=== PATIENT | male | born 1965 | race Caucasian/White ===

== ENCOUNTER → 2018-01-16 15:24 | Outpatient (CLI) | payer MEDICARE, MEDICAID, SELFPAY | PROVIDERS: PCP Family Medicine; Visit Provider Family Medicine | DX: E66.01 Morbid (severe) obesity due to excess calories (principal); I10 Essential (primary) hypertension; E11.9 Type 2 diabetes mellitus without complications; Z53.8 Procedure and treatment not carried out for other reasons; Z53.9 Procedure and treatment not carried out, unspecified reason ==

== ENCOUNTER → 2018-02-20 08:36 | Outpatient (CLI) | payer MEDICARE, MEDICAID, SELFPAY ==
[2018-02-20 10:04] LABS: BUN Creatinine Ratio 13.3 (6-22); Blood Urea Nitrogen 12 mg/dL (9-20); Calcium 9.4 mg/dL (8.4-10.2); Carbon Dioxide 34 mmol/L (22-32); Chloride 95 mmol/L (98-107); Estimated Glomerular Filt Rate > 60.0 mL/min (>60); Glucose 151 mg/dL (70-100); HEMOLYSIS < 15 (0-50); Potassium 3.4 mmol/L (3.4-5.1); Sodium 138 mmol/L (137-145)
[2018-02-20 10:45] LABS: Hemoglobin A1C% w Est Avg Glu 6.9 % (4.0-6.0)
== END ==
PROVIDERS: PCP Family Medicine; Visit Provider Family Medicine
DX: I10 Essential (primary) hypertension (principal); E11.9 Type 2 diabetes mellitus without complications
CPT/HCPCS: 36415; 80048; 83036

== ENCOUNTER → 2018-08-23 11:02 | Outpatient (CLI) | payer MEDICARE, MEDICAID, SELFPAY | PROVIDERS: PCP Family Medicine; Visit Provider Family Medicine | DX: E11.9 Type 2 diabetes mellitus without complications (principal) | CPT/HCPCS: 36415; 83036 ==

== ENCOUNTER → 2020-01-31 10:15 | Outpatient (CLI) | payer MEDICARE, MEDICAID, SELFPAY ==
[2020-01-31 11:39] LABS: Hemoglobin A1C% w Est Avg Glu 7.8 % (4.0-6.0)
[2020-01-31 11:49] LABS: Alanine Aminotransferase 50 IU/L (<50); Albumin 4.6 g/dL (3.5-5.0); Albumin Globulin Ratio 1.6 (1.0-2.8); Alkaline Phosphatase 102 U/L (38-126); Aspartate Aminotransferase 40 IU/L (17-59); BUN Creatinine Ratio 16.9 (6-22); Bilirubin Total 1.4 mg/dL (0.2-1.3); Blood Urea Nitrogen 12 mg/dL (9-20); Calcium 9.8 mg/dL (8.4-10.2); Carbon Dioxide 32 mmol/L (22-32); Chloride 97 mmol/L (98-107); Cholesterol 101 mg/dL (140-199); Estimated Glomerular Filt Rate > 60.0 mL/min (>60); Globulin 2.8 g/dL (1.7-4.1); Glucose 139 mg/dL (70-100); HDL Cholesterol 23 mg/dL (40-60); HEMOLYSIS < 15 (0-50); LDL Cholesterol Calculated 28 mg/dL (<100); Sodium 138 mmol/L (137-145); Total Protein 7.4 g/dL (6.3-8.2); Triglycerides 250 mg/dL (35-150)
[2020-01-31 17:16] LABS: Creatinine Urine Random 301.4 mg/dL
[2020-01-31 17:21] LABS: Microalbumi Creatinin Ratio Ur 30.5 ug/mg CR (<30); Microalbumin Urine Random 9.2 mg/dL (0-1.6)
== END ==
PROVIDERS: PCP Family Medicine; Referring Provider Family Medicine; Visit Provider Family Medicine
DX: E11.9 Type 2 diabetes mellitus without complications (principal); E66.01 Morbid (severe) obesity due to excess calories; E78.5 Hyperlipidemia, unspecified; I10 Essential (primary) hypertension; R17 Unspecified jaundice
CPT/HCPCS: 36415; 80053; 80061; 82043; 82570; 83036

== ENCOUNTER → 2020-05-09 11:39 | Outpatient (CLI) | payer MEDICARE, MEDICAID, SELFPAY ==
[2020-05-09 12:32] LABS: Hemoglobin A1C% w Est Avg Glu 7.3 % (4.0-6.0)
[2020-05-09 14:04] LABS: Alanine Aminotransferase 37 IU/L (<50); Albumin 4.3 g/dL (3.5-5.0); Albumin Globulin Ratio 1.4 (1.0-2.8); Alkaline Phosphatase 118 U/L (38-126); Aspartate Aminotransferase 25 IU/L (17-59); BUN Creatinine Ratio 19.3 (6-22); Bilirubin Total 1.5 mg/dL (0.2-1.3); Blood Urea Nitrogen 16 mg/dL (9-20); Calcium 9.6 mg/dL (8.4-10.2); Carbon Dioxide 31 mmol/L (22-32); Chloride 93 mmol/L (98-107); Estimated Glomerular Filt Rate > 60.0 mL/min (>60); Glucose 172 mg/dL (70-100); HEMOLYSIS < 15 (0-50); Potassium 3.9 mmol/L (3.4-5.1); Sodium 132 mmol/L (137-145); Total Protein 7.3 g/dL (6.3-8.2)
== END ==
PROVIDERS: PCP Family Medicine; Referring Provider Family Medicine; Visit Provider Family Medicine
DX: E11.9 Type 2 diabetes mellitus without complications (principal); E66.01 Morbid (severe) obesity due to excess calories; I10 Essential (primary) hypertension; R17 Unspecified jaundice
CPT/HCPCS: 36415; 80053; 83036

== ENCOUNTER → 2020-10-06 10:31 | Outpatient (CLI) | payer MEDICARE, MEDICAID, SELFPAY ==
[2020-10-06 11:46] LABS: Hemoglobin A1C% w Est Avg Glu 7.9 % (4.0-6.0)
== END ==
PROVIDERS: PCP Family Medicine; Referring Provider Family Medicine; Visit Provider Family Medicine
DX: E11.9 Type 2 diabetes mellitus without complications (principal)
CPT/HCPCS: 36415; 83036

== ENCOUNTER → 2021-03-05 14:14 | Outpatient (CLI) | payer MEDICARE, MEDICAID, SELFPAY ==
[2021-03-05 15:03] LABS: Hemoglobin A1C% w Est Avg Glu 7.7 % (4.0-6.0)
[2021-03-05 15:21] LABS: Alanine Aminotransferase 26 IU/L (<50); Albumin 4.3 g/dL (3.5-5.0); Albumin Globulin Ratio 1.3 (1.0-2.8); Alkaline Phosphatase 107 U/L (38-126); Aspartate Aminotransferase 27 IU/L (17-59); BUN Creatinine Ratio 20.8 (6-22); Bilirubin Total 1.2 mg/dL (0.2-1.3); Blood Urea Nitrogen 15 mg/dL (9-20); Calcium 9.8 mg/dL (8.4-10.2); Carbon Dioxide 27 mmol/L (22-32); Chloride 102 mmol/L (98-107); Cholesterol 121 mg/dL (140-199); Estimated Glomerular Filt Rate > 60.0 mL/min (>60); Globulin 3.3 g/dL (1.7-4.1); Glucose 153 mg/dL (70-100); HDL Cholesterol 34 mg/dL (40-60); HEMOLYSIS < 15 (0-50); LDL Cholesterol Calculated 44 mg/dL (<100); Potassium 3.7 mmol/L (3.4-5.1); Sodium 138 mmol/L (137-145); Total Protein 7.6 g/dL (6.3-8.2); Triglycerides 213 mg/dL (35-150)
== END ==
PROVIDERS: PCP Family Medicine; Referring Provider Family Medicine; Visit Provider Family Medicine
DX: E11.9 Type 2 diabetes mellitus without complications (principal); E66.01 Morbid (severe) obesity due to excess calories; E78.2 Mixed hyperlipidemia; I10 Essential (primary) hypertension; K76.0 Fatty (change of) liver, not elsewhere classified
CPT/HCPCS: 36415; 80053; 80061; 83036

== ENCOUNTER → 2022-03-16 09:06 | Outpatient (CLI) | payer MEDICARE, MEDICAID, SELFPAY ==
[2022-03-16 10:03] LABS: Add Manual Diff / Slide Review NO; Basophils Absolute Auto 100 /uL (0-100); Basophils Percent Auto 0.5 % (0-2); Eosinophils Absolute Auto 300 /uL (0-450); Eosinophils Percent Auto 2.6 % (2-4); Hemoglobin 15.7 g/dL (13.5-17.5); Lymphocytes Absolute Auto 2800 /uL (1100-4500); Lymphocytes Percent Auto 26.1 % (25-40); Mean Corpuscular HGB Conc 33.5 % (30-36); Mean Corpuscular Hemoglobin 26.2 PG (26-34); Mean Corpuscular Volume 78.4 fL (80-100); Monocytes Absolute Auto 1000 /uL (0-900); Monocytes Percent Auto 9.3 % (3-14); Neutrophils Absolute Auto 6600 /uL (1500-7000); Neutrophils Percent Auto 61.5 % (50-75); Platelet Count 265 X10^3/uL (150-400); Red Cell Distribution Width 15.3 % (11.6-14.8); White Blood Cell Count 10.7 X10^3/uL (4.5-11.0)
[2022-03-16 10:28] LABS: Cholesterol 158 mg/dL (140-199); HDL Cholesterol 35 mg/dL (40-60); LDL Cholesterol Calculated 73 mg/dL (<100); Triglycerides 252 mg/dL (35-150)
== END ==
PROVIDERS: PCP Family Medicine; Referring Provider Family Medicine; Visit Provider Family Medicine
DX: E11.9 Type 2 diabetes mellitus without complications (principal); E78.5 Hyperlipidemia, unspecified; I10 Essential (primary) hypertension; K76.0 Fatty (change of) liver, not elsewhere classified; E66.01 Morbid (severe) obesity due to excess calories; F79 Unspecified intellectual disabilities
CPT/HCPCS: 36415; 80061; 83036; 85025

== ENCOUNTER → 2022-07-06 16:54 | Outpatient (CLI) | payer MEDICARE, MEDICAID, SELFPAY ==
[2022-07-06 18:41] LABS: Hemoglobin A1C% w Est Avg Glu 8.6 % (4.0-6.0)
[2022-07-06 18:42] LABS: Alanine Aminotransferase 36 IU/L (<50); Albumin 4.3 g/dL (3.5-5.0); Albumin Globulin Ratio 1.2 (1.0-2.8); Alkaline Phosphatase 110 U/L (38-126); Aspartate Aminotransferase 29 IU/L (17-59); Bilirubin Total 1.1 mg/dL (0.2-1.3); Blood Urea Nitrogen 19 mg/dL (9-20); Calcium 9.3 mg/dL (8.4-10.2); Carbon Dioxide 29 mmol/L (22-32); Chloride 94 mmol/L (98-107); Estimated Glomerular Filt Rate > 60 mL/min (>60); Globulin 3.5 g/dL (1.7-4.1); Glucose 225 mg/dL (70-100); HEMOLYSIS < 15 (0-50); Potassium 3.8 mmol/L (3.4-5.1); Sodium 136 mmol/L (137-145); Total Protein 7.8 g/dL (6.3-8.2)
== END ==
PROVIDERS: PCP Family Medicine; Referring Provider Family Medicine; Visit Provider Family Medicine
DX: E11.9 Type 2 diabetes mellitus without complications (principal); E66.01 Morbid (severe) obesity due to excess calories; E78.2 Mixed hyperlipidemia; I10 Essential (primary) hypertension; K76.0 Fatty (change of) liver, not elsewhere classified
CPT/HCPCS: 36415; 80053; 83036

== ENCOUNTER → 2022-09-02 15:15 | Outpatient (CLI) | payer MEDICARE, MEDICAID, SELFPAY ==
--- NOTE | 2022-09-02 15:22 | DI.RAD.S_ITS ---
PROCEDURE: XR SHOULDER RT MIN 2V INDICATIONS: right shoulder pain TECHNIQUE: 3 views of the shoulder were acquired. COMPARISON: None. FINDINGS: Bones: No fractures or dislocations. No suspicious bony lesions. Visualized ribs appear intact. The acromioclavicular joint has degenerative changes. Soft tissues: No suspicious soft tissue calcifications. IMPRESSION: Degenerative changes of the acromioclavicular joint. Dictated by: Yves Tapia M.D. on 09/02/2022 at 16:08 Approved by: Yves Tapia M.D. on 09/02/2022 at 16:10
== END ==
PROVIDERS: PCP Family Medicine; Referring Provider Family Medicine; Visit Provider Family Medicine
DX: M25.811 Other specified joint disorders, right shoulder (principal)
CPT/HCPCS: 73030

== ENCOUNTER → 2022-11-30 12:11 | Outpatient (CLI) | payer MEDICARE, MEDICAID, SELFPAY ==
[2022-11-30 13:45] LABS: Alanine Aminotransferase 42 IU/L (<50); Albumin 4.5 g/dL (3.5-5.0); Albumin Globulin Ratio 1.4 (1.0-2.8); Alkaline Phosphatase 105 U/L (38-126); Aspartate Aminotransferase 33 IU/L (17-59); BUN Creatinine Ratio 23.3 (6-22); Bilirubin Total 1.9 mg/dL (0.2-1.3); Blood Urea Nitrogen 17 mg/dL (9-20); Calcium 9.7 mg/dL (8.4-10.2); Carbon Dioxide 27 mmol/L (22-32); Chloride 96 mmol/L (98-107); Estimated Glomerular Filt Rate > 60 mL/min (>60); Globulin 3.2 g/dL (1.7-4.1); Glucose 171 mg/dL (70-100); HEMOLYSIS < 15 (0-50); Potassium 3.7 mmol/L (3.4-5.1); Sodium 135 mmol/L (137-145); Total Protein 7.7 g/dL (6.3-8.2)
[2022-11-30 18:03] LABS: Creatinine Urine Random 64.1 mg/dL
[2022-11-30 18:07] LABS: Microalbumi Creatinin Ratio Ur 84.2 ug/mg CR (<30); Microalbumin Urine Random 5.4 mg/dL (0-1.6)
[2022-12-01 05:13] LABS: Labcorp Hemoglobin (Hb) A1c 8.9 % (4.8-5.6)
== END ==
PROVIDERS: PCP Family Medicine; Referring Provider Family Medicine; Visit Provider Family Medicine
DX: E78.5 Hyperlipidemia, unspecified (principal); E11.9 Type 2 diabetes mellitus without complications; I10 Essential (primary) hypertension; K76.0 Fatty (change of) liver, not elsewhere classified
CPT/HCPCS: 36415; 80053; 82043; 82570; 83036

== ENCOUNTER 2023-06-18 08:41 | Emergency (ER) | payer MEDICARE, MEDICAID, SELFPAY ==
--- NOTE | 2023-06-18 08:47 | ED_ITS ---
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 Patient comes with complaint of fall onto his left knee approximately a week ago he was hunting fell into the directly onto his knee had immediate pain which has been persistent and slowly increasing. Did not have swelling immediately afterwards but has increased over the last week. No obvious ecchymosis or skin changes. Painful to weightbear. Painful with any sort of movement but most comfortable holding it flexed posit ion while resting on his other side. Patient denies any numbness tingling or weakness. No prior surgeries to that knee. He has been using crutches for the last 2 days. He took some Tylenol last night and some Advil yesterday without any improvement. States he takes oral medication for his diabetes. Allergic to lisinopril. Patient defers anything for pain. No tobacco, alcohol or illicit. Related Data Previous Rx's Medication Instructions Recorded losartan 100 1 tab PO QDAY #90 tabs 11/16/22 mg-hydrochlorothiazide 25 mg tablet semaglutide 7 mg tablet (Rybelsus) 7 mg PO DAILY #90 tabs 12/30/22 atorvastatin 40 mg tablet See Rx Instructions .Route 06/07/23 .COMPLEX #90 tabs empagliflozin 25 mg-metformin ER See Rx Instructions .Route 06/15/23 1,000 mg tablet,extended release .COMPLEX #90 tabs 24hr (Synjardy XR) Allergies Allergy/AdvReac Type Severity Reaction Status Date / Time lisinopril [LISINOPRIL] AdvReac Mild cough Verified 11/30/22 16:33 Review of Systems Review of Systems ROS Unobtainable: All systems reviewed & are unremarkable except as noted in HPI and below Patient History Medical History Meningitis spinal Headache Mumps Cracked skin on feet Hypertension (~2015) Type II diabetes mellitus (~2015) Acquired mental retardation Family History Father Atrial fibrillation Heart failure Hypertension Myelogenous leukemia Grandmother Heart failure Social History Smoking Status: Never smoker Smoking Status: Never smoker Exam Narrative Exam Narrative: GENERAL: Alert and oriented x three, obese male in mild distress. HEENT: Head normocephalic, atraumatic, EOMI, pupils reactive, face symmetric, moist mucous membranes NECK: Supple, full range of motion CARDIOVASCULAR: Regular rate and rhythm without murmurs, rubs or gallops. RESPIRATORY: Breath sounds equal bilaterally, no wheezes rales or rhonchi. ABDOMEN: Soft, nontender. Normoactive bowel sounds all 4 quadrants. No guarding or rebound, rigidity, no mass : No CVA tenderness EXTREMITIES: Normal range of motion, no clubbing or edema. Neurovascularly intact. Patient has slight swelling of the left knee in comparison to the right, no ecchymosis. He has tenderness over the tibial plateau and with valgus varus testing. No patellar tenderness. No other bony tenderness of the left hip,, lower extremity, knee or ankle. Patient does have full range of motion. He can stand but is uncomfortable. No crepitus. No visual effusion noted. NEUROLOGICAL: Cranial nerves II through XII grossly intact. Moving all extremities SKIN: Warm, dry, no petechiae, no rashes or lesions. Initial Vital Signs Initial Vital Signs: Vital Signs Temperature 97.2 F L 06/18/23 08:49 Pulse Rate 98 H 06/18/23 08:49 Respiratory Rate 17 06/18/23 08:49 Blood Pressure 162/90 H 06/18/23 08:49 Pulse Oximetry 96 06/18/23 08:49 Oxygen Delivery Method Room Air 06/18/23 08:49 Course Orders Ordered: ED Orders 06/18/23 08:54 XR knee LT 3V Stat Vital Signs Vital signs: Vital Signs - 8 hr 06/18/23 08:49 06/18/23 10:30 Temperature 97.2 F L Pulse Rate 98 H 90 Respiratory Rate 17 18 Blood Pressure 162/90 H 140/80 Pulse Oximetry 96 98 Oxygen Delivery Method Room Air Room Air MDM - Extremity Injury (Lower) Imaging Data Extremity x-ray #1: Radiologist's Impression: Close Knee X-Ray (Signed) Salazar Solorzano - 06/18/23 Launch?[address] [address] XRay Report Signed Patient: Walker Cotton MR#: [id number] : 1965 Acct:[id number] Age/Sex: 58 / M Date of Service: 06/18/23 Loc: ED Accession Number: [id number] Procedure: XR knee LT 3V Ordering Provider: Vanessa Jackman D.O. PROCEDURE: XR KNEE LT 3V INDICATIONS: fall TECHNIQUE: 3 views of the knee were acquired. COMPARISON: None. FINDINGS: Bones: No fractures or dislocations. No suspicious bony lesions. Patellar enthesophytes. Small patellar osteophytes. Calcification adjacent to the medial femoral condyle suggestive of remote MCL injury. Soft tissues: Small joint effusion. No suspicious soft tissue calcifications. IMPRESSION: No acute osseous finding. Patellofemoral osteoarthritic changes. Sequela of probable remote injury to the medial collateral ligament. Dictated by: Salazar Solorzano M.D. on 06/18/2023 at 8:59 Approved by: Salazar Solorzano M.D. on 06/18/2023 at 9:00 [facility] Narrative Medical decision making narrative: 58-year-old male with fall onto his left knee approximately a week ago without any resolution of pain which has been slowly increasing in the describing increasing swelling with painful weight-bearing. Patient does have pain with some valgus variants testing. Still little bit of tenderness over the tibial plateau but seems to be more ligamentous in nature physical examination. X-ray shows small joint effusion, no fractures or dislocations, patient does have some small patellar osteophytes and calcification adjacent to the medial femoral condyle suggesting remote MCL injury. Plan for crutches, knee immobilizer. Weightbearing as tolerated with plan for follow up with Orthopedic surgery or primary care for further workup if not improving over the next week. Patient family feel comfortable with this plan. Reviewed the if symptoms resolved without intervention they do not have to continue knee immobilizer and can do normal activities. If persistent can go through primary care or orthopedic surgery. Patient family expressed un derstanding they defer anything stronger for pain. Discharge Plan Departure Patient Disposition: Home Clinical Impression: Left knee sprain Activity Restrictions/Additional Instructions: Please call to follow up with primary care or orthopedic surgery if your symptoms are not improving over the next week. You may take Tylenol up to a 1000 mg every 6 hours as needed and/or ibuprofen up to 600 mg every 6 hours. You may weightbear as tolerated. Splint Care: Keep splint clean and dry. Elevated affected body part to decrease swelling. OK to use ice pack on the affected body part. Use for 15-20 minutes each time, for 5-6x per day. If you develop worsening pain, numbness, tingling, discoloration of the affected body part, loosen the splint by loosening the KENNEDY wrap, and either see your doctor for an urgent re-assessment, or return to the Emergency Department. Return to the Emergency Department for any new or worsening symptoms. Prescriptions: No Action losartan-hydrochlorothiazide 100-25 mg tablet 1 tab PO QDAY Qty: 90 3RF Rybelsus 7 mg tablet 7 mg PO DAILY Qty: 90 3RF Rx Instructions: start after finishing 3mg pills atorvastatin 40 mg tablet See Rx Instructions .ROUTE .COMPLEX Qty: 90 3RF Hold Instructions: Not sure if patient is taking at this time Dose Instruction: TAKE 1 TABLET BY MOUTH AT BEDTIME Rx Instructions: TAKE 1 TABLET BY MOUTH AT BEDTIME Synjardy XR 25-1,000 mg tablet, IR - ER, biphasic 24hr See Rx Instructions .ROUTE .COMPLEX Qty: 90 3RF Dose Instruction: TAKE 1 TABLET BY MOUTH DAILY Rx Instructions: TAKE 1 TABLET BY MOUTH DAILY Referrals: Supa Saba MD [Primary Care Provider] - Claudia Hoskins MD [Physician] - Stand Alone Forms: Patient Portal/API
[2023-06-18 08:49] VITALS: BP 162/90; PULSE 98; RESP 17; TEMP 36.2; O2SAT 96; BMI 42.0
--- NOTE | 2023-06-18 08:54 | DI.RAD.S_ITS ---
PROCEDURE: XR KNEE LT 3V INDICATIONS: fall TECHNIQUE: 3 views of the knee were acquired. COMPARISON: None. FINDINGS: Bones: No fractures or dislocations. No suspicious bony lesions. Patellar enthesophytes. Small patellar osteophytes. Calcification adjacent to the medial femoral condyle suggestive of remote MCL injury. Soft tissues: Small joint effusion. No suspicious soft tissue calcifications. IMPRESSION: No acute osseous finding. Patellofemoral osteoarthritic changes. Sequela of probable remote injury to the medial collateral ligament. Dictated by: Salazar Solorzano M.D. on 06/18/2023 at 8:59 Approved by: Salazar Soolrzano M.D. on 06/18/2023 at 9:00
--- NOTE | 2023-06-18 10:18 | PC.NURSE ---
Dr. Jackman at bedside
[2023-06-18 10:30] VITALS: BP 140/80; PULSE 90; RESP 18; O2SAT 98
== END 2023-06-18 10:32 | disposition home or self-care (01) ==
PROVIDERS: Emergency Provider Emergency Medicine; PCP Family Medicine
DX: S83.92XA Sprain of unspecified site of left knee, initial encounter (principal); W19.XXXA Unspecified fall, initial encounter
CPT/HCPCS: 73562; 99283

== ENCOUNTER → 2023-08-12 09:42 | Outpatient (CLI) | payer MEDICARE, MEDICAID, SELFPAY ==
[2023-08-12 11:16] LABS: Hemoglobin A1C% w Est Avg Glu 8.7 % (4.0-6.0)
[2023-08-12 11:24] LABS: Alanine Aminotransferase 38 IU/L (<50); Albumin 4.4 g/dL (3.5-5.0); Albumin Globulin Ratio 1.2 (1.0-2.8); Alkaline Phosphatase 96 U/L (38-126); Aspartate Aminotransferase 27 IU/L (17-59); BUN Creatinine Ratio 15.8 (6-22); Bilirubin Total 1.6 mg/dL (0.2-1.3); Blood Urea Nitrogen 12 mg/dL (9-20); Calcium 9.8 mg/dL (8.4-10.2); Carbon Dioxide 28 mmol/L (22-32); Chloride 98 mmol/L (98-107); Cholesterol 183 mg/dL (140-199); Estimated Glomerular Filt Rate > 60 mL/min (>60); Globulin 3.7 g/dL (1.7-4.1); Glucose 201 mg/dL (70-100); HDL Cholesterol 35 mg/dL (40-60); HEMOLYSIS < 15 (0-50); LDL Cholesterol Calculated 68 mg/dL (<100); Potassium 3.7 mmol/L (3.4-5.1); Sodium 136 mmol/L (137-145); Total Protein 8.1 g/dL (6.3-8.2); Triglycerides 400 mg/dL (35-150)
[2023-08-12 11:59] LABS: TSH w/ Reflex to FT4 1.94 uIU/mL (0.47-4.68)
[2023-08-13 03:37] LABS: Apolipoprotein B 100 mg/dL (<90)
== END ==
PROVIDERS: PCP Family Medicine; Referring Provider Family Medicine; Visit Provider Family Medicine
DX: E11.9 Type 2 diabetes mellitus without complications (principal); I10 Essential (primary) hypertension; E78.5 Hyperlipidemia, unspecified; E66.01 Morbid (severe) obesity due to excess calories; K76.0 Fatty (change of) liver, not elsewhere classified
CPT/HCPCS: 36415; 80053; 80061; 82172; 83036; 84443

== ENCOUNTER → 2023-11-08 13:53 | Outpatient (CLI) | payer MEDICARE, MEDICAID, SELFPAY ==
[2023-11-08 15:29] LABS: Alanine Aminotransferase 30 IU/L (<50); Albumin 4.1 g/dL (3.5-5.0); Albumin Globulin Ratio 1.2 (1.0-2.8); Alkaline Phosphatase 89 U/L (38-126); Aspartate Aminotransferase 23 IU/L (17-59); BUN Creatinine Ratio 18.8 (6-22); Bilirubin Total 1.6 mg/dL (0.2-1.3); Blood Urea Nitrogen 13 mg/dL (9-20); Calcium 9.9 mg/dL (8.4-10.2); Carbon Dioxide 29 mmol/L (22-32); Chloride 102 mmol/L (98-107); Estimated Glomerular Filt Rate > 60 mL/min (>60); Globulin 3.3 g/dL (1.7-4.1); Glucose 239 mg/dL (70-100); HEMOLYSIS < 15 (0-50); Potassium 3.8 mmol/L (3.4-5.1); Sodium 136 mmol/L (137-145); Total Protein 7.4 g/dL (6.3-8.2)
[2023-11-08 19:36] LABS: Hemoglobin A1C% w Est Avg Glu 8.3 % (4.0-6.0)
== END ==
LOC: LAB 13:54
PROVIDERS: PCP Family Medicine; Referring Provider Family Medicine; Visit Provider Family Medicine
DX: E11.9 Type 2 diabetes mellitus without complications (principal); E78.5 Hyperlipidemia, unspecified; I10 Essential (primary) hypertension; K76.0 Fatty (change of) liver, not elsewhere classified; E66.01 Morbid (severe) obesity due to excess calories
CPT/HCPCS: 36415; 80053; 83036

== ENCOUNTER → 2024-02-07 11:12 | Outpatient (CLI) | payer MEDICARE, MEDICAID, SELFPAY ==
[2024-02-07 12:29] LABS: Hemoglobin A1C% w Est Avg Glu 8.2 % (4.0-6.0)
[2024-02-07 12:46] LABS: Alanine Aminotransferase 37 IU/L (<50); Albumin 4.5 g/dL (3.5-5.0); Albumin Globulin Ratio 1.2 (1.0-2.8); Alkaline Phosphatase 102 U/L (38-126); Aspartate Aminotransferase 35 IU/L (17-59); BUN Creatinine Ratio 24.3 (6-22); Bilirubin Total 2.3 mg/dL (0.2-1.3); Blood Urea Nitrogen 18 mg/dL (9-20); Calcium 9.4 mg/dL (8.4-10.2); Carbon Dioxide 27 mmol/L (22-32); Chloride 104 mmol/L (98-107); Estimated Glomerular Filt Rate > 60 mL/min (>60); Globulin 3.8 g/dL (1.7-4.1); Glucose 179 mg/dL (70-100); HEMOLYSIS 43 (0-50); Potassium 3.9 mmol/L (3.4-5.1); Sodium 137 mmol/L (137-145); Total Protein 8.3 g/dL (6.3-8.2)
== END ==
PROVIDERS: PCP Family Medicine; Referring Provider Family Medicine; Visit Provider Family Medicine
DX: E11.9 Type 2 diabetes mellitus without complications (principal); I10 Essential (primary) hypertension; E78.2 Mixed hyperlipidemia
CPT/HCPCS: 36415; 80053; 83036

== ENCOUNTER → 2024-06-01 08:34 | Outpatient (CLI) | payer MEDICARE, MEDICAID, SELFPAY ==
[2024-06-01 09:27] LABS: Hemoglobin A1C% w Est Avg Glu 8.6 % (4.0-6.0)
[2024-06-01 09:36] LABS: Alanine Aminotransferase 31 IU/L (<50); Albumin 4.5 g/dL (3.5-5.0); Albumin Globulin Ratio 1.5 (1.0-2.8); Alkaline Phosphatase 94 U/L (38-126); Aspartate Aminotransferase 25 IU/L (17-59); BUN Creatinine Ratio 14.5 (6-22); Bilirubin Direct 0.2 mg/dL (0.0-0.4); Blood Urea Nitrogen 12 mg/dL (9-20); Calcium 9.9 mg/dL (8.4-10.2); Carbon Dioxide 30 mmol/L (22-32); Chloride 98 mmol/L (98-107); Estimated Glomerular Filt Rate > 60 mL/min (>60); Glucose 159 mg/dL (70-100); HEMOLYSIS < 15 (0-50); Potassium 3.4 mmol/L (3.4-5.1); Sodium 136 mmol/L (137-145); Total Protein 7.5 g/dL (6.3-8.2)
[2024-06-01 09:37] LABS: Creatinine Urine Random 96.45 mg/dL
[2024-06-05 14:36] LABS: Albumin 3.9 g/dL (2.9-4.4); Alpha-1-Globulin 0.2 g/dL (0.0-0.4); Alpha-2-Globulin 0.8 g/dL (0.4-1.0); Gamma Globulin 1.4 g/dL (0.4-1.8); Globulin Total 3.5 g/dL (2.2-3.9); Protein, Total 7.4 g/dL (6.0-8.5)
== END ==
PROVIDERS: PCP Family Medicine; Referring Provider Family Medicine; Visit Provider Family Medicine
DX: K76.0 Fatty (change of) liver, not elsewhere classified (principal); I10 Essential (primary) hypertension; E66.01 Morbid (severe) obesity due to excess calories; R77.9 Abnormality of plasma protein, unspecified; E78.2 Mixed hyperlipidemia; E11.29 Type 2 diabetes mellitus with other diabetic kidney complication; R80.9 Proteinuria, unspecified
CPT/HCPCS: 36415; 80053; 82043; 82248; 82570; 83036; 84155; 84165

== ENCOUNTER → 2024-11-27 15:25 | Outpatient (CLI) | payer MEDICARE, MEDICAID, SELFPAY ==
[2024-11-27 16:07] LABS: Add Manual Diff / Slide Review NO; Basophils Absolute Auto 100 /uL (0-100); Basophils Percent Auto 0.6 % (0-2); Eosinophils Absolute Auto 300 /uL (0-450); Hematocrit 44.5 % (41-53); Hemoglobin 15.2 g/dL (13.5-17.5); Lymphocytes Absolute Auto 2000 /uL (1100-4500); Lymphocytes Percent Auto 22.9 % (25-40); Mean Corpuscular HGB Conc 34.2 % (30-36); Mean Corpuscular Volume 81.9 fL (80-100); Monocytes Absolute Auto 900 /uL (0-900); Neutrophils Absolute Auto 5500 /uL (1500-7000); Neutrophils Percent Auto 63.5 % (50-75); Platelet Count 262 X10^3/uL (150-400); Red Blood Cell Count 5.44 X10^6/uL (4.5-5.9); Red Cell Distribution Width 15.2 % (11.6-14.8); White Blood Cell Count 8.7 X10^3/uL (4.5-11.0)
[2024-11-27 16:28] LABS: Alanine Aminotransferase 40 IU/L (<50); Albumin 4.8 g/dL (3.5-5.0); Albumin Globulin Ratio 1.7 (1.0-2.8); Alkaline Phosphatase 98 U/L (38-126); Aspartate Aminotransferase 30 IU/L (17-59); BUN Creatinine Ratio 22.5 (6-22); Bilirubin Direct 0.4 mg/dL (0.0-0.4); Bilirubin Total 1.5 mg/dL (0.2-1.3); Blood Urea Nitrogen 16 mg/dL (9-20); Calcium 10.3 mg/dL (8.4-10.2); Carbon Dioxide 25 mmol/L (22-32); Chloride 98 mmol/L (98-107); Estimated Glomerular Filt Rate > 60 mL/min (>60); Globulin 2.8 g/dL (1.7-4.1); Glucose 261 mg/dL (70-99); HEMOLYSIS < 15 (0-50); Potassium 4.2 mmol/L (3.4-5.1); Sodium 134 mmol/L (137-145); Total Protein 7.6 g/dL (6.3-8.2)
[2024-11-27 16:58] LABS: TSH w/ Reflex to FT4 0.73 uIU/mL (0.47-4.68)
[2024-11-27 16:59] LABS: Prostate Specific Antigen Scrn 0.561 ng/mL (0.1-4.0)
== END ==
PROVIDERS: PCP Family Medicine; Referring Provider Family Medicine; Visit Provider Family Medicine
DX: K76.0 Fatty (change of) liver, not elsewhere classified (principal); E11.9 Type 2 diabetes mellitus without complications; Z12.5 Encounter for screening for malignant neoplasm of prostate; E78.5 Hyperlipidemia, unspecified; I10 Essential (primary) hypertension
CPT/HCPCS: 36415; 80053; 82248; 83036; 84443; 85025; G0103

== ENCOUNTER → 2025-02-18 10:44 | Outpatient (CLI) | payer MEDICARE, MEDICAID, SELFPAY ==
[2025-02-18 11:36] LABS: Hemoglobin A1C% w Est Avg Glu 8.9 % (4.0-6.0)
[2025-02-18 11:47] LABS: Alanine Aminotransferase 40 IU/L (<50); Albumin 4.4 g/dL (3.5-5.0); Albumin Globulin Ratio 1.4 (1.0-2.8); Alkaline Phosphatase 79 U/L (38-126); Blood Urea Nitrogen 12 mg/dL (9-20); Calcium 9.4 mg/dL (8.4-10.2); Carbon Dioxide 27 mmol/L (22-32); Chloride 102 mmol/L (98-107); Cholesterol 185 mg/dL (140-199); Estimated Glomerular Filt Rate > 60 mL/min (>60); Globulin 3.1 g/dL (1.7-4.1); Glucose 198 mg/dL (70-99); HDL Cholesterol 30 mg/dL (40-60); HEMOLYSIS 27 (0-50); Potassium 4.1 mmol/L (3.4-5.1); Sodium 138 mmol/L (137-145); Total Protein 7.5 g/dL (6.3-8.2); Triglycerides 352 mg/dL (35-150)
== END ==
PROVIDERS: PCP Family Medicine; Referring Provider Family Medicine; Visit Provider Family Medicine
DX: E11.9 Type 2 diabetes mellitus without complications (principal); I10 Essential (primary) hypertension; E78.5 Hyperlipidemia, unspecified; E83.52 Hypercalcemia; K76.0 Fatty (change of) liver, not elsewhere classified
CPT/HCPCS: 36415; 80053; 80061; 82310; 83036; 83970